=== PATIENT | male | born 1965 | race American Indian/Alaskan Native ===

== ENCOUNTER 2016-04-06 07:41 | Outpatient (CLI) | payer OTHER ==
--- NOTE | 2016-04-06 09:31 | Magnetic Resonance Report ---
MRI ABDOMEN WITH AND WITHOUT CONTRAST HISTORY: Prostate cancer, liver mass. TECHNIQUE: Multiple T1 and T2-weighted images with and without fat suppression. Postcontrast dynamic imaging following 15 cc of Multihance intravenously. Comparison: CT abdomen and pelvis without contrast and bone scan on 02/15/16. FINDINGS: The 2.3 cm hypodense lesion in the left hepatic lobe identified on noncontrast CT is also visualized on MRI. This lesion is decreased T1 signal and increased T2 signal. There is progressive peripheral nodular enhancement with delayed central filling consistent with a type II enhancement pattern of a cavernous hemangioma. No additional liver lesions are identified. The liver is normal size, contour and signal intensity. The portal venous system and hepatic veins are patent. The spleen is normal size and homogeneous. Normal biliary system, pancreas, kidneys, adrenal glands and visualized bowel loops. The aorta is normal caliber. The IVC is patent. There is no evidence for abdominal or retroperitoneal adenopathy. Normal bone marrow signal in the visualized spine. IMPRESSION: 2.3 cm cavernous hemangioma in the left hepatic lobe, type II enhancement pattern. No suspicious liver mass. No evidence for metastatic disease in the abdomen on MRI with contrast.
== END 2016-04-06 07:42 | disposition home or self-care (01) ==
LOC: MRI 07:41
PROVIDERS: ATTEND Internal Medicine Gastroenterology
DX: D18.01 Hemangioma of skin and subcutaneous tissue (principal); K76.89 Other specified diseases of liver; D18.09 Hemangioma of other sites; Z85.46 Personal history of malignant neoplasm of prostate
CPT/HCPCS: 74183; A9577

== ENCOUNTER 2017-09-23 08:16 | Day surgery (SDC) | payer OTHER ==
[~2017-09-23 08:16] MED LIST: ANCEF/STERILE WATER 2 GM/20 ML 2 GM/20 ML SYRINGE IV NR
--- NOTE | 2017-09-23 10:41 | Anesthesia Consultation ---
Anesthesia Consult and Med Hx Date of service: 09/23/17 - Airway Anesthetic Teeth Evaluation: Good ROM Head & Neck: Adequate Mental/Hyoid Distance: Adequate Mallampati Class: Class II Intubation Access Assessment: Probably Good - Pulmonary Exam CTA: Yes - Cardiac Exam Cardiac Exam: RRR - Pre-Operative Health Status ASA Pre-Surgery Classification: ASA2 Proposed Anesthetic Plan: General (denies GERD, hx tob, HTN, LMA ok) - Pulmonary Hx Smoking: Yes (1 PPD SINCE 1983) Hx Asthma: No Hx Respiratory Symptoms: No SOB: No COPD: No (Pt denies emphysema/bronchitis) Hx Pneumonia: No Hx Sleep Apnea: No (CHRIS PRE SCREEN HIGH RISK) - Cardiovascular System Hx Hypertension: Yes (2012) Hx Heart Attack/AMI: No Hx Angina: No Hx Percutaneous Transluminal Coronary Angioplasty (PTCA): No Hx Cardia Arrhythmia: No Hx Pacemaker: No Hx Internal Defibrillator: No Hx Valvular Heart Disease: No Hx Peripheral Vascular Disease: No - Central Nervous System Hx Neuromuscular Disorder: No Hx Seizures: No CVA: No Hx Back Pain: Yes Hx Psychiatric Problems: No - Gastrointestinal Hx Gastroesophageal Reflux Disease: Yes (mild, asymptomatic) - Endocrine Hx End Stage Renal Disease: No Hx Cirrhosis: No Hx Insulin Dependent Diabetes: No Hx Non-Insulin Dependent Diabetes: No Hx Thyroid Disease: No - Hematic Hx Anemia: No Hx Sickle Cell Disease: No - Other Systems Hx Alcohol Use: No Hx Substance Use: No Hx Cancer: Yes Hx Obesity: No
--- NOTE | 2017-09-23 10:41 | Anesthesia Day of Surgery ---
Anesthesia Day of Surgery - Day of Surgery Patient Examined: Yes Patient H&P Reviewed: Yes Patient is NPO: Yes
[2017-09-23] MEDS ORDERED: ZOFRAN IV PRN (11:00)
[2017-09-23] MEDS ORDERED: DEMEROL IV PRN (11:00)
[2017-09-23] MEDS ORDERED: VERSED IV NR (11:00)
[2017-09-23] MEDS ORDERED: DILAUDID IV PRN (11:00)
[2017-09-23] MEDS ORDERED: LACTATED RINGERS 1,000 ML IV SCH ×2 (11:00)
--- NOTE | 2017-09-23 11:20 | Discharge Summary ---
Short Stay Discharge Plan Activity: other (no straining ) Weight Bearing Status: Full Weight Bearing Diet: regular Special Instructions: other (inc fluids ) Durable Medical Equipment Needed Upon Discharge: other (tovar cath care ) Follow up with: SEFERINO HANNA MD [Primary Care Provider] - 7 Days EMIL DAMON MD [Staff Physician] - 7 Days
--- NOTE | 2017-09-23 11:21 | Post Operative Note ---
Date of procedure: 09/23/17 Pre-op diagnosis: hematuria Post-op diagnosis: same Findings: bladder lesion Procedure: cysto rpg turbt Anesthesia: GETA Surgeon: EMIL DAMON
[2017-09-23] MEDS ORDERED: SUBLIMAZE ONE (11:24)
[2017-09-23] MEDS ORDERED: DIPRIVAN 10 MG/ML IV ONE (11:24)
[2017-09-23] MEDS ORDERED: XYLOCAINE MPF 2% ONE (11:27)
[2017-09-23] MEDS ORDERED: ZEMURON IV ONE (11:27)
[2017-09-23] MEDS ORDERED: ANCEF ONE (12:04)
[2017-09-23] MEDS ORDERED: ePHEDrine 50 MG/5 ML-0.9% NACL IV ONE (12:12)
[2017-09-23] MEDS ORDERED: ROBINUL ONE ×2 (12:17)
[2017-09-23] MEDS ORDERED: ZOFRAN ONE (12:17)
[2017-09-23] MEDS ORDERED: BLOXIVERZ ONE (12:17)
[2017-09-23] MEDS ORDERED: NEO SYNEPHRINE/NS Syringe(OR USE) IV ONE (12:30)
[2017-09-23] MEDS ORDERED: WATER FOR IRRIG STERILE IR ONE (12:39)
[2017-09-23] MEDS ORDERED: SORBITOL-MANNITOL IRRIG IR ONE (12:39)
--- NOTE | 2017-09-23 13:28 | Fluoroscopy Report ---
FLUOROSCOPY RETROGRADE UROGRAPHY: HISTORY: Hematuria. FINDINGS: Fluoroscopy was provided by radiology during retrograde urography by the urologist. 10 fluoroscopic images were captured. There is adequate filling of the ureters and intrarenal collecting systems with no filling defects or anatomic abnormalities identified. Please correlate with the procedural report if needed. IMPRESSION: Retrograde pyelograms within normal limits.
[2017-09-23 15:54] VITALS: BP 102/68
--- NOTE | 2017-09-23 15:54 | Operative Report ---
PREOPERATIVE DIAGNOSES: History of prostate cancer, radiation therapy, and radical prostatectomy. POSTOPERATIVE DIAGNOSES: History of prostate cancer, radiation therapy, and radical prostatectomy with gross hematuria; bladder lesion, posterior wall, flat, non-papillary. PROCEDURE: Cystoscopy, bilateral retrograde with stent and transurethral resection of bladder tumor. SURGEON: Kian Kwan M.D. ANESTHESIA: General. FINDINGS: The gentleman with gross hematuria. He has had previous radical prostatectomy and radiation. He has a lesion, posterior wall of the bladder, now presents for treatment. DESCRIPTION OF PROCEDURE: The patient was brought to the operating room and placed on the operating table. Following induction of anesthesia, placed in lithotomy position, prepped and draped in usual sterile fashion. Cystourethroscopy showed a lesion in the right posterior wall. The orifices were pinpoint. We needed a wire with a 5-Chinese open-ended to do a retrograde. This showed no filling defects except for air bubbles, which we watched and drained freely. This was bilaterally, we placed stents ____ with a wire. At this point, resection of bladder tumor was carried out ____ down to muscular fibers. No significant bleeding was encountered. All the chips were evacuated out and sent to pathology. The patient tolerated the procedure well. No significant bleeding, brought to recovery room in stable condition. JOB# [id number] RODRICK/JEMMA
--- NOTE | 2017-09-23 19:37 | Post Anesthesia Evaluation ---
- Post Anesthesia Evaluation Patient Participated: Yes Airway Patent: Yes Stable Respiratory Function: Yes Nausea/Vomiting: No Temp > 96.8F: Yes Pain Manageable: Yes Adequeate Hydration: Yes Anesthesia Complications: No
== END 2017-09-23 16:05 | disposition home or self-care (01) ==
LOC: OR 08:16
PROVIDERS: ATTEND Urology
DX: N32.9 Bladder disorder, unspecified (principal); E78.00 Pure hypercholesterolemia, unspecified; K21.9 Gastro-esophageal reflux disease without esophagitis; M19.90 Unspecified osteoarthritis, unspecified site; I10 Essential (primary) hypertension; F17.210 Nicotine dependence, cigarettes, uncomplicated; Z85.46 Personal history of malignant neoplasm of prostate; Z92.3 Personal history of irradiation; Z85.51 Personal history of malignant neoplasm of bladder; Z98.890 Other specified postprocedural states
CPT/HCPCS: 36415; 52234; 74420; 84132; 88305; C1726; C1758; C1769; J0690; J1170; J2250; J2370; J2405; J2704; J2710; J3010; J7120; Q9967